=== PATIENT | male | born 1990 | race Two or more races ===

== ENCOUNTER 2016-11-26 23:50 | Emergency (ER) | payer SELFPAY ==
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
[2016-11-27] MEDS ORDERED: MOTRIN600 M2 PO (01:33)
== END 2016-11-27 01:33 | disposition home or self-care (01) ==
LOC: SED 23:50
DX: S20.219A Contusion of unspecified front wall of thorax, initial encounter (principal); S00.511A Abrasion of lip, initial encounter; X58.XXXA Exposure to other specified factors, initial encounter; Y92.009 Unspecified place in unspecified non-institutional (private) residence as the place of occurrence of the external cause
CPT/HCPCS: 71020; 99283

== ENCOUNTER 2017-04-05 20:26 | Emergency (ER) | payer BC ==
[~2017-04-05] VITALS: Ht 167.6 cm; Wt 72.6 kg
--- NOTE | ~2017-04-05 | CR63 ---
[facility] A Service of [facility] & [facility] RADIOLOGY TEXT RESULTS PATIENT: DEEJAY GRANT LOCATION: CFTX : [birth year] UNIT #: [id number] AGE: [address]: Kevin Slaughter SEX: M ORDER DR: [id number] [facility] [address] [place], [place] [address] [id number] E MR#: [id number] Acc #: [id number] NAME: DEEJAY GRANT : 1990 SEX: M STUDY DATE/TIME: 04/05/2017 21:50 UNIT: [facility] ROOM: STUDY DESCRIPTION: CR Chest 2 View Attending Physician: Kevin Slaughter P.A.-C. Ordering Physician: Kevin Slaughter P.A.-C. Primary Care Physician: No Primary Care Physician MEDICAL IMAGING REPORT This report is preliminary unless electronic signature is present EXAM Two-view chest. INDICATIONS Cough for 6 months. FINDINGS PA and lateral views of the chest compared to 11/27/2016. The heart and mediastinal contours are normal. Lungs are clear. No pleural effusion. IMPRESSION No acute cardiopulmonary findings. Dictated by... Adrian Cummings M.D. THIS IS AN ELECTRONICALLY VERIFIED REPORT Adrian Cummings M.D. at 04/06/2017 3:13 PM MARYLIN/rubén TD: 04/05/2017 22:49 JOB #: [id number] MEDICAL IMAGING REPORT Page 1 of 1 COPY
[~2017-04-05 20:26] MED LIST: MOTRIN600 M2 PO
== END 2017-04-05 22:23 | disposition home or self-care (01) ==
LOC: CED 20:26 → CFTX 20:26
DX: J30.2 Other seasonal allergic rhinitis (principal); R42 Dizziness and giddiness; Z88.1 Allergy status to other antibiotic agents
CPT/HCPCS: 71020; 99283

== ENCOUNTER 2017-05-16 00:40 | Emergency (ER) | payer BC ==
[~2017-05-16] VITALS: Ht 175.3 cm; Wt 73.5 kg
== END 2017-05-16 04:00 | disposition home or self-care (01) ==
LOC: CED 00:40
DX: R51 Headache (principal); Z88.1 Allergy status to other antibiotic agents
CPT/HCPCS: 96361; 96374; 96375; 99284; J1200; J1885; J2765